=== PATIENT | female | born 1995 | race Caucasian/White ===

== ENCOUNTER 2017-02-11 14:21 | Emergency (ER) | payer BC ==
[~2017-02-11] VITALS: Ht 160 cm; Wt 62.5 kg
[2017-02-11 14:26] VITALS: BP 126/75; PULSE 66; RESP 16; TEMP 98.1; O2SAT 97
--- NOTE | 2017-02-11 15:38 | PD ---
HPI Chief Complaint: Musculoskeletal Complaint Time Seen by Provider: 15:30 Travel History International Travel<30 days: No Contact w/Intl Traveler<30days: No Traveled to known affect area: No History of Present Illness HPI 21-year-old female presents to the emergency department for evaluation of left back pain and left shoulder pain after she fell. Patient states she fell getting out a shower and hit her left back against a cabinet. She denies any head injury or LOC. No neck pain. No chest pain or shortness of breath. No abdominal pain. No nausea, vomiting, diarrhea. She states this occurred approximately 3 hours prior to arrival. Current pain is 5 out of 10. Exacerbating factor is movement. Alleviating factor is rest. She did take ibuprofen 600 mg prior to arrival which has helped with her pain as well. She has no medical problems and takes no medications. She denies any chance of . Moderate severity. No associated symptoms. PFSH Past Medical History Medical History: Denies Significant Hx ?: Not Past Surgical History Abdominal Surgery: Yes (removal of benign tumor) Social History Alcohol Use: No Tobacco Use: No Substance Use: No Allergies-Medications (Allergen,Severity, Reaction): Coded Allergies: No Known Allergies (Verified Allergy, Unknown, 02/11/17) Reported Meds & Prescriptions Reported Meds & Active Scripts Active No Active Prescriptions or Reported Medications Review of Systems Except as stated in HPI: all other systems reviewed are Neg Physical Exam Narrative GENERAL: Well-nourished, well-developed female patient, ambulatory. Afebrile. SKIN: Focused skin assessment warm/dry. HEAD: Normocephalic. Atraumatic. ENT: Mucosa pink and moist. No erythema or exudates. No uvular edema. No uvular , palatal, or tonsillar deviation. Airway patent. Nasal turbinates appear normal without nasal blood, purulent drainage or septal hematoma. Bilateral tympanic membranes are clear without erythema or perforation. EYES: No scleral icterus. No injection or drainage. NECK: Supple, trachea midline. No JVD or lymphadenopathy. CARDIOVASCULAR: Regular rate and rhythm without murmurs, gallops, or rubs. RESPIRATORY: Breath sounds equal bilaterally. No accessory muscle use. Lungs sounds are clear to auscultation GASTROINTESTINAL: Abdomen soft, non-tender, nondistended. MUSCULOSKELETAL: No cyanosis, or edema. Patient has tenderness over left shoulder, left scapula and left posterior ribs. BACK: Nontender without obvious deformity. No CVA tenderness. No midline spinal tenderness. Data Data Last Documented VS Vital Signs Date Time Temp Pulse Resp B/P (MAP) Pulse Ox O2 Delivery O2 Flow Rate FiO2 02/11/17 14:26 98.1 66 16 126/75 (92) 97 Orders Orders Chest, Single Ap (02/11/17 ) Shoulder, Complete (>2vws) (02/11/17 ) Methocarbamol (Robaxin) (02/11/17 17:30) MDM Medical Decision Making Medical Screen Exam Complete: Yes Emergency Medical Condition: Yes Medical Record Reviewed: Yes Interpretation(s) Chest x-ray = CONCLUSION: No acute cardiopulmonary disease. x-ray left shoulder - CONCLUSION: Unremarkable study. Differential Diagnosis Contusion versus fracture versus sprain Narrative Course 21-year-old female presents to the emergency department for evaluation of left back injury after she fell from the shower. Patient has tenderness over left posterior ribs, left scapula and shoulder. X-ray of the left shoulder and chest are ordered and pending. X-ray of the left shoulder is unremarkable. X-ray of the chest shows no acute cardiopulmonary disease. Physical exam and imaging is reassuring. Patient is given dose of Robaxin before discharge. She'll be discharged prescription for ibuprofen and Robaxin. She is instructed ice and follow up with her primary care physician. She verbalizes agreement and understanding. The patient was discharged in stable condition with instructions, including return instructions and follow up instructions. Diagnosis Primary Impression: Contusion Qualified Codes: S20.222A - Contusion of left back wall of thorax, initial encounter Additional Impression: Shoulder strain Qualified Codes: S46.912A - Strain of unspecified muscle, fascia and tendon at shoulder and upper arm level, left arm, initial encounter Referrals: Primary Care Physician call for appointment Patient Instructions: Contusion in Adults (ED), General Instructions, Shoulder Pain (ED) Departure Forms: Tests/Procedures, Work Release Enter return to work date: Feb 13, 2017 Additional Instructions: Ice for 20 minutes 4-5 times daily. Take ibuprofen as directed as needed with food for pain. Take Robaxin as directed as needed Follow-up with your primary care physician. Return to the emergency department for any acute worsening of symptoms. Med/Other Pt SpecificInfo: Prescription(s) given Scripts Methocarbamol (Robaxin) 750 Mg Tab 750 MG PO TID Y for MUSCLE SPASM, #21 TAB 0 Refills Prov: Valentina Hernández 02/11/17 Ibuprofen (Ibuprofen) 600 Mg Tab 600 MG PO TID Y for PAIN SCALE 1 TO 10, #21 TAB 0 Refills Prov: Valentina Hernández 02/11/17 Disposition: 01 DISCHARGE HOME Condition: Stable Valentina Hernández Feb 11, 2017 15:38
--- NOTE | 2017-02-11 17:12 | RADRPT ---
EXAM DATE/TIME: 02/11/2017 16:21 [facility] COMPARISON: No previous studies available for comparison. INDICATIONS : Fell in shower, left shoulder pain, limited ROM MEDICAL HISTORY : None. SURGICAL HISTORY : None. ENCOUNTER: Initial ACUITY: 1 day PAIN SCORE: 8/10 LOCATION: Left shoulder TECH NOTE: Denies , shield CELE Bailey MR#[id number] :97 Exam date/desc:JanuarySHOULDER LEFT COMPLETE (>2VWS) FINDINGS: No definite fractures, or dislocations are identified. No definite lytic or sclerotic lesion is seen . CONCLUSION: Unremarkable study. Catrachita Esparza MD on February 11, 2017 at 17:10 Board Certified Radiologist. This report was verified electronically.
--- NOTE | 2017-02-11 17:12 | RADRPT ---
EXAM DATE/TIME: 02/11/2017 16:20 [facility] COMPARISON: No previous studies available for comparison. INDICATIONS : Fell in shower, left upper chest pain MEDICAL HISTORY : None. SURGICAL HISTORY : None. ENCOUNTER: Initial ACUITY: 1 day PAIN SCORE: 8/10 LOCATION: Left upper chest TECH NOTE: Denies , shield CELE Bailey MR#[id number] :97 Exam date/desc:JanuaryCHEST SINGLE AP FINDINGS: The lungs are clear without infiltrate, nodule, or mass. There is no appreciable pleural effusion fo r technique. Heart and mediastinum are unremarkable. CONCLUSION: No acute cardiopulmonary disease. Catrachita Esparza MD on February 11, 2017 at 17:10 Board Certified Radiologist. This report was verified electronically.
[2017-02-11] MEDS ORDERED: IBUP-232 PO (17:21)
[2017-02-11] MEDS ORDERED: ROBA750T PO (17:21)
[2017-02-11] MEDS ORDERED: METHOCARBAMOL 500 MG TAB PO ONE (17:30)
== END 2017-02-11 17:32 | disposition home or self-care (01) ==
LOC: PHEFT 14:21
DX: S20.222A Contusion of left back wall of thorax, initial encounter (principal); S46.912A Strain of unspecified muscle, fascia and tendon at shoulder and upper arm level, left arm, initial encounter; W01.190A Fall on same level from slipping, tripping and stumbling with subsequent striking against furniture, initial encounter; Y93.E1 Activity, personal bathing and showering; Y92.002 Bathroom of unspecified non-institutional (private) residence as the place of occurrence of the external cause
CPT/HCPCS: 71010; 73030; 99284